=== PATIENT | female | born 1955 | race Caucasian/White ===

== ENCOUNTER 2024-04-28 13:52 | Outpatient (CLI) | payer MEDICARE, SELFPAY ==
--- NOTE | ~2024-04-28 | CT_ITS ---
EXAMINATION: CT abdomen wo con DATE: 04/28/2024 14:08 INDICATION: Unspecified abdominal hernia without obstruction. TECHNIQUE: Computed tomography (CT) of the abdomen was performed without intravenous contrast. Automa emely exposure control and iterative reconstruction technique were employed. The dose-length product wa s 684.98 mGy-cm. COMPARISON: None. FINDINGS: The visualized portions of lung bases demonstrate emphysema and mild atelectasis. No pleura l effusion. Cardiomegaly is noted. There are coronary artery calcifications. No pericardial effusion. The liver, gallbladder, spleen, pancreas, and adrenal glands are normal. There are cysts in the kidn eys measuring up to 2.3 cm on the left. There are no dilated loops of bowel. There are old healed rig ht rib fractures. There is moderate thoracic spondylosis and severe lumbar spondylosis. There is mild chronic anterior wedging of multiple thoracic vertebral bodies. IMPRESSION: 1. No hernia identified. Reviewed, dictated and finalized at location A. IMPRESSION: 1. No hernia identified.
== END 2024-04-28 13:53 ==
LOC: GOSHIMG 13:53
PROVIDERS: PCP Family Medicine; Visit Provider Family Medicine
DX: K46.9 Unspecified abdominal hernia without obstruction or gangrene (principal)
CPT/HCPCS: 74150

== ENCOUNTER 2024-07-14 13:05 | Outpatient (CLI) | payer MEDICARE, SELFPAY ==
[2024-07-14] VITALS (9 sets, daily range): PULSE 94–131; O2SAT 83–90
--- NOTE | 2024-07-14 13:52 | HOMEO2EVAL ---
Evaluation was performed at [facility] Home Oxygen Evaluation RC: Home Oxygen (O2) Evaluation Start: 07/14/24 13:43 Freq: Status: Active Protocol: RPE Activity Type Activity Date Activity User E-sign Co-sign Detail Recorded Client Recorded Date Recorded By Document 07/14/24 12:55 [email or web address] [email or web address] 07/14/24 13:51 DJO Document 07/14/24 13:00 [email or web address] 07/14/24 13:51 DJO Document 07/14/24 13:05 [email or web address] 07/14/24 13:51 DJO Document 07/14/24 13:10 [email or web address] [email or web address] 07/14/24 13:51 DJO Document 07/14/24 13:15 [email or web address] [email or web address] 07/14/24 13:51 DJO Document 07/14/24 13:20 [email or web address] [email or web address] 07/14/24 13:51 DJO Document 07/14/24 13:25 [email or web address] [email or web address] 07/14/24 13:51 DJO Document 07/14/24 13:30 [email or web address] [email or web address] 07/14/24 13:51 DJO Document 07/14/24 13:45 [email or web address] [email or web address] 07/14/24 13:51 DJO 07/14/24 07/14/24 07/14/24 12:55 13:00 13:05 Home O2 Evaluation [Oxygen] -Test Phase Resting Resting Resting -Oxygen Delivery Room Air Nasal Cannula Nasal Cannula -Oxygen Flow Rate (L/min) 1 2 [Pulse Oximetry] -Pulse Oximetry (90-100 %) 84 L 85 L 87 L [Pulse Rate] -Pulse Rate (60-100 beats/min) 105 H 104 H 103 H [Evaluation] -Activity Tolerance [Comments] -Home Oxygen Evaluation Comments [Charges] -Evaluation Charges O2 Evaluation by Pulmonary 07/14/24 07/14/24 07/14/24 13:10 13:15 13:20 Home O2 Evaluation [Oxygen] -Test Phase Resting Exercise Exercise -Oxygen Delivery Nasal Cannula Nasal Cannula Nasal Cannula -Oxygen Flow Rate (L/min) 3 3 4 [Pulse Oximetry] -Pulse Oximetry (90-100 %) 90 83 L 85 L [Pulse Rate] -Pulse Rate (60-100 beats/min) 100 129 H 131 H [Evaluation] -Activity Tolerance [Comments] -Home Oxygen Evaluation Comments [Charges] -Evaluation Charges 07/14/24 07/14/24 07/14/24 13:25 13:30 13:45 Home O2 Evaluation [Oxygen] -Test Phase Exercise Exercise Resting -Oxygen Delivery Nasal Cannula Nasal Cannula Nasal Cannula -Oxygen Flow Rate (L/min) 5 5 3 [Pulse Oximetry] -Pulse Oximetry (90-100 %) 87 L 90 90 [Pulse Rate] -Pulse Rate (60-100 beats/min) 128 H 127 H 94 [Evaluation] -Activity Tolerance Good [Comments] -Home Oxygen Evaluation Comments PLACED PT ON 5L CONTINUOUS FLOW WITH ACTIVITY [Charges] -Evaluation Charges
== END 2024-07-14 13:06 | disposition home or self-care (01) ==
LOC: ANHPFT 13:05
PROVIDERS: PCP Family Medicine; Visit Provider Internal Medicine Critical Care Medicine
DX: J96.11 Chronic respiratory failure with hypoxia (principal)
CPT/HCPCS: 94618

== ENCOUNTER 2024-08-25 13:43 | Outpatient (CLI) | payer MEDICARE, SELFPAY ==
--- NOTE | ~2024-08-25 | CT_ITS ---
CT Scan of the Chest without Contrast: Clinical Indication: Lung cancer screening, nicotine dependence Technique: Contiguous sections were acquired throughout the chest without intravenous contrast. Dose reduction technique was used on this scan by utilizing automated exposure control and iterative recon struction technique. The dose-length product (DLP) was 231.00 mGy-cm. Findings: Multiple prominent precarinal lymph node present, with preserved fatty hilum. Probable mild cardiomeg gerson. No axillary lymphadenopathy. Mild coronary artery calcifications noted.. There is no evidence of pleural or pericardial effusion. Calcified right lower lobe granuloma present. There are grouped nodules in the right middle lobe mac uring up to 5 mm. There is linear scarring or atelectasis at the lingula.. There is advanced emphysem a. Images through the upper abdomen reveal no abnormalities. Impression: Lung RADS 2: Benign appearance. 12 month follow-up screening CT advised. Reviewed, dictated and finalized at [facility]. SIGNAL WIRER Impression: Lung RADS 2: Benign appearance. 12 month follow-up screening CT advised.
== END 2024-08-25 13:44 | disposition home or self-care (01) ==
LOC: ANHIMG 13:43
PROVIDERS: PCP Family Medicine; Visit Provider Nurse Practitioner Family
DX: Z12.2 Encounter for screening for malignant neoplasm of respiratory organs (principal); Z87.891 Personal history of nicotine dependence
CPT/HCPCS: 71271